=== PATIENT | female | born 1970 | race Caucasian/White ===

== ENCOUNTER 2018-06-24 02:52 | Emergency (ER) | payer OTHER, SELFPAY ==
[2018-06-24 03:30] LABS: #Basophils 0.1 thou/uL (0.0-0.2); #Lymphocytes 1.9 thou/uL (1.20-3.40); #Monocytes 0.9 thou/uL (0.11-0.59); #Neutrophils 15.8 thou/uL (1.40-6.50); %Basophils 0.4 % (0.0-1.0); %Eosinophils 0.2 % (0.0-10.0); %Monocytes 4.9 % (0.0-10.0); %Neutrophils 84.5 % (42.0-75.0); Hemoglobin 14.8 g/dL (12.0-16.0); Mean Corpuscular HGB CONC 33.8 g/dL (32.0-36.0); Mean Corpuscular Hemoglobin 33.4 pg (27.0-31.0); Mean Corpuscular Volume 98.8 fL (78.0-98.0); Mean Platelet Volume 6.6 fL (7.4-10.4); Platelet Count 362 thou/uL (130-400); RBC Distribution Width 11.5 % (11.5-14.5); Red Blood Cell (RBC) Count 4.44 mill/uL (4.20-5.40); White Blood Cell (WBC) Count 18.7 thou/uL (4.8-10.8)
[2018-06-24 03:46] LABS: Bilirubin Small (Negative); Blood, Urine Large (Negative); Glucose, Urine (Dipstick) Negative (Negative); Leukocyte Moderate (Negative); Nitrite Positive (Negative); Protein, Urine (Dipstick) 100 mg/dL (Neg-Trace); Urobilinogen 0.2 mg/dL (0.2-1.0)
[2018-06-24 03:47] LABS: Bacteria/HPF 3+ HPF (None Seen); Clarity Cloudy (Clear); RBC/HPF GREATER THAN 50-TNTC HPF (0-3); Squamous Epithelial 0-3 HPF (0-3)
[2018-06-24 03:48] LABS: Pathc Cast-AUWi Flag 8.19 (0-2.49); Specific Gravity, Urine 1.025 (1.002-1.036)
[2018-06-24 03:50] LABS: ALT (SGPT) 14 U/L (8-55); AST (SGOT) 15 U/L (5-34); Albumin 4.3 g/dL (3.5-5.0); Alkaline Phosphatase 86 U/L (40-150); Anion Gap 13 mmol/L (10-20); BUN (Urea Nitrogen) 13 mg/dL (7.0-18.7); Bilirubin, Total 0.3 mg/dL (0.2-1.2); Calc. Creatinine Clearance 0 mL/min (70-130); Calcium 9.7 mg/dL (7.8-10.44); Carbon Dioxide 22 mmol/L (22-29); Chloride 109 mmol/L (98-107); Estimated GFR-MDRD 49; Globulin 3.1 g/dL (2.4-3.5); Glucose 136 mg/dL (70-105); Potassium 4.1 mmol/L (3.5-5.1); Protein, Total 7.4 g/dL (6.0-8.3); Sodium 140 mmol/L (136-145)
[2018-06-24 03:53] LABS: Hyaline Casts/LPF 7-10 HYALINE CAST LPF (0-3 Hyaline); Manual Microscopic Reviewed? No Path Casts Seen
[2018-06-24] MEDS ORDERED: cefTRIAXone\\ROCEPHIN 1 GM VIAL ONE (04:42)
[2018-06-24] MEDS ORDERED: Ketorolac Tromethamine 30 MG/ML VIAL ONE (04:42)
--- NOTE | 2018-06-24 09:04 | CT ---
PRELIMINARY REPORT/[facility]/EMERGENTY AFTER-HOURS PROCEDURE CT Abdomen and Pelvis Without Contrast EXAM DATE/TIME: 06/24/2018 4:34 AM CLINICAL HISTORY: 48 years old, female; Pain; Abdominal pain; Flank; Right; Patient HX: 48/f presents to the ed with C/ O dysuria, hesistancy, frequentcy, right flank pain and urethral pain that started approx. 7 hours ag o. PT reports history of pyelonephritis and states this feels similar. PT also states she has had some burning across her chest since she started vomiting. PT states 3 epiusodes of vomiting and the l ast time was dry heaving. PT has history of mi in 10/2016 and had 1 stent placed. TECHNIQUE: Axial computed tomography images of the abdomen and pelvis without contrast. Coronal reformatted images were created and reviewed. COMPARISON: No relevant prior studies available. FINDINGS: Lower thorax: No acute findings. ABDOMEN: Liver: Area of low attenuation within the liver adjacent to the fissure of the ligamentum teres is be lieved to represent focal fat. Gallbladder and bile ducts: Normal. No calcified stones. No ductal dilation. Pancreas: Normal. No ductal dilation. Spleen: Normal. No splenomegaly. Adrenals: Normal. No mass. Kidneys and ureters: -Mild hydronephrosis and hydroureter on the right. No visualized obstructing luci culus. Likely passed calculus. Correlate. Followup if indicated. Stomach and bowel: Diverticulosis without evidence of diverticulitis. Appendix: -The appendix is normal. PELVIS: Bladder: Unremarkable as visualized. Reproductive: Unremarkable as visualized. ABDOMEN and PELVIS: Intraperitoneal space: No acute intra-abdominal process. No inflammatory process. No obstruction. No free fluid within the pelvis or within the dependent portions of the peritoneum. Bones/joints: No acute fracture. No dislocation. Soft tissues: Unremarkable. Vasculature: Calcification of the aorta. Lymph nodes: Normal. No enlarged lymph nodes. IMPRESSION: 1. -Mild hydronephrosis and hydroureter on the right. No visualized obstructing calculus. Likely pass ed calculus. Correlate. Followup if indicated. 2. No acute intra-abdominal process. No inflammatory process. No obstruction. 3. No free fluid within the pelvis or within the dependent portions of the peritoneum. 4. -The appendix is normal. Thank you for allowing us to participate in the care of your patient. Dictated and Authenticated by: Jose Taylor MD 06/24/2018 6:02 AM Central Time ([place] & [place]) FINAL REPORT EMERGENCY AFTER HOURS CT ABDOMEN AND PELVIS: Date: 06/24/18 IMPRESSION: I agree with the preliminary interpretation given by Jones. POS: [facility]
== END 2018-06-24 06:25 | disposition home or self-care (01) ==
LOC: ERS 02:52
DX: N30.00 Acute cystitis without hematuria (principal); I25.2 Old myocardial infarction; F41.9 Anxiety disorder, unspecified; F31.9 Bipolar disorder, unspecified; F17.210 Nicotine dependence, cigarettes, uncomplicated; Z79.899 Other long term (current) drug therapy; Z79.82 Long term (current) use of aspirin
CPT/HCPCS: 36415; 74176; 80053; 81003; 81015; 84484; 85025; 93005; 96361; 96365; 96375; J0696; J1885

== ENCOUNTER 2018-09-21 08:26 | Outpatient (CLI) | payer OTHER ==
--- NOTE | 2018-09-21 10:28 | RAD ---
Air contrast barium enema HISTORY: Screening exam. Possible sigmoid obstruction. Fluoroscopy time 1.6 minutes. FINDINGS: Air contrast barium enema shows a few scattered diverticula arising from the sigmoid colon. No evidence of adjacent inflammation. Minimal stool remains within the colon. No persistent filling defect or annular constricting lesion. The appendix was opacified. Terminal ileum did not reflux. IMPRESSION: Mild sigmoid diverticulosis. No evidence of diverticulitis. No cholelithiasis visualized.
== END 2018-09-21 08:27 | disposition home or self-care (01) ==
LOC: RAD 08:26
PROVIDERS: ATTEND Emergency Medicine
DX: Z12.11 Encounter for screening for malignant neoplasm of colon (principal); K57.30 Diverticulosis of large intestine without perforation or abscess without bleeding
CPT/HCPCS: 74280

== ENCOUNTER 2021-05-05 19:27 | Observation (INO) | payer SELFPAY ==
[2021-05-05 19:58] VITALS: BMI 25.0
[2021-05-05] MEDS ORDERED: Ondansetron PF 4 MG/2 ML Vial IVP PRN (23:10)
[2021-05-05] MEDS ORDERED: Guaifenesin DM 100-10/5 ML UDCUP PO PRN (23:10)
[2021-05-05] MEDS ORDERED: Acetaminophen 325 MG TAB PO PRN (23:10)
[2021-05-05] MEDS ORDERED: hydrALAZINE 20 MG/ML VIAL SLOW IVP PRN (23:19)
[2021-05-05] MEDS ORDERED: Melatonin 3 MG TAB PO PRN (23:19)
[2021-05-05] MEDS ORDERED: Nitroglycerin 0.4 MG TAB (25 Tab Bottle) SL PRN (23:19)
[2021-05-05] MEDS ORDERED: Enoxaparin Sodium 40 MG/0.4 ML SYRINGE SC SCH (23:30)
[2021-05-05] MEDS ORDERED: Nicotine 21 MG PATCH TD SCH (23:59)
[2021-05-06] MEDS: Sodium Chloride 0.9% 1,000 ML IV SCH ×2 (00:10→09:18)
[2021-05-06 05:10] LABS: #Basophils 0.1 thou/uL (0.0-0.2); #Lymphocytes 4.5 thou/uL (1.20-3.40); #Monocytes 0.9 thou/uL (0.11-0.59); %Basophils 0.8 % (0.0-1.0); %Eosinophils 0.4 % (0.0-10.0); %Lymphocytes 42.8 % (21.0-51.0); %Monocytes 8.6 % (0.0-10.0); %Neutrophils 47.3 % (42.0-75.0); Hemoglobin 12.2 g/dL (12.0-16.0); Mean Corpuscular HGB CONC 33.1 g/dL (32.0-36.0); Mean Corpuscular Hemoglobin 32.8 pg (27.0-31.0); Mean Corpuscular Volume 98.9 fL (78.0-98.0); Mean Platelet Volume 6.4 fL (7.4-10.4); Platelet Count 348 thou/uL (130-400); RBC Distribution Width 11.8 % (11.5-14.5); Red Blood Cell (RBC) Count 3.73 mill/uL (4.20-5.40); White Blood Cell (WBC) Count 10.6 thou/uL (4.8-10.8)
[2021-05-06 05:40] LABS: ALT (SGPT) 12 U/L (8-55); AST (SGOT) 14 U/L (5-34); Albumin 3.4 g/dL (3.5-5.0); Alkaline Phosphatase 61 U/L (40-110); Anion Gap 11 mmol/L (10-20); BUN (Urea Nitrogen) 12 mg/dL (7.0-18.7); Bilirubin, Total 0.4 mg/dL (0.2-1.2); Calc. Creatinine Clearance 87 mL/min (70-130); Carbon Dioxide 27 mmol/L (22-29); Chloride 108 mmol/L (98-107); Glucose 97 mg/dL (70-105); Protein, Total 6.4 g/dL (6.0-8.3); Sodium 142 mmol/L (136-145)
[2021-05-06 05:47] LABS: Hemoglobin A1c 5.7 % (4.0-6.0)
[2021-05-06] MEDS ORDERED: FLU VACC QS2021-22(6MOS UP)/PF 60 MCG/0.5 ML SYRINGE IM ONE (09:00)
[2021-05-06] MEDS ORDERED: Famotidine/PF 20 mg/2ml Vial SLOW IVP SCH (09:00)
[2021-05-06] MEDS ORDERED: ADENOSINE 60 MG/20 ML VIAL ONE (09:14)
[2021-05-06 16:30] VITALS: BP 169/102; TEMP 97.5
[2021-05-06] MEDS ORDERED: Enoxaparin Sodium 40 MG/0.4 ML SYRINGE SC SCH (21:00)
== END 2021-05-06 16:33 | disposition home or self-care (01) ==
LOC: 2SW 19:27 → INTOOBSV 19:27
PROVIDERS: ADMIT Internal Medicine; ATTEND Internal Medicine
DX: R07.89 Other chest pain (principal); I25.2 Old myocardial infarction; I25.10 Atherosclerotic heart disease of native coronary artery without angina pectoris; E87.6 Hypokalemia; Z20.822 Contact with and (suspected) exposure to COVID-19; Z79.82 Long term (current) use of aspirin; Z79.899 Other long term (current) drug therapy; Z88.0 Allergy status to penicillin; Z95.5 Presence of coronary angioplasty implant and graft
CPT/HCPCS: 36415; 78452; 80053; 83036; 84443; 85025; 93005; 93010; 93017; 93306; 96374; A9500; G0378; J0153; J1650; J7050; S0028